=== PATIENT | male | born 1975 | race Caucasian/White ===

== ENCOUNTER → 2020-12-06 08:09 | Outpatient (CLI) | payer BC, SELFPAY ==
[2020-12-06 11:40] LABS: COVID19 -Nasal RAPID Negative (Negative)
== END ==
PROVIDERS: Visit Provider Physician Assistant
DX: Z01.812 Encounter for preprocedural laboratory examination (principal); Z20.822 Contact with and (suspected) exposure to COVID-19
CPT/HCPCS: 87635

== ENCOUNTER 2020-12-07 09:04 | Day surgery (SDC) | payer BC, SELFPAY ==
[2020-12-07] VITALS (18 sets, daily range): BP systolic 86–139; BP diastolic 42–87; PULSE 61–94; RESP 10–20; TEMP 36.2–36.6; O2SAT 93–98; BMI 31.8
[2020-12-07] MEDS: LACTATED RINGERS 1,000 ML 42 ML IV ×3 (09:41→16:00)
--- NOTE | 2020-12-07 10:53 | PM.PREOP ---
Pre-operative Note Interval Note History & Physical reviewed/Exam performed by Physician: Yes Changes to H&P: No
--- NOTE | 2020-12-07 10:54 | PM.HP.1 ---
History of Present Illness History of Present Illness [place] [facility] [place]: 45-YEAR-OLD GENTLEMAN WHO SUSTAINED A FALL MANY MONTHS AGO RESULTING IN A RUPTURE OF HIS DISTAL BICEPS. Patient History Medical History Rupture of left biceps tendon Surgical History Hx of tonsillectomy Family & Social History Social History: household members spouse Tobacco & Substance use: Smoking Status Never smoker alcohol intake current alcohol intake frequency a few times a week Substance Use Type does not use Meds Home Medications and Allergies Home Medications Medication Instructions Recorded Confirmed Type fluorometholone 0.25 % eye 1 drp OPHTHALMIC (EYE) QID 12/04/20 12/07/20 History drops,suspension ([employer]) Allergies Allergy/AdvReac Type Severity Reaction Status Date / Time Penicillins Allergy Verified 12/07/20 09:43 Exam Vital Signs (past 8 hours): - 12/07/20 09:33 Temperature 97.2 F L Pulse Rate 94 H Respiratory Rate 20 Blood Pressure 139/87 Pulse Oximetry 98 Oxygen Delivery Method Room Air Narrative Exam Narrative: PROXIMAL MIGRATION OF THE BICEPS ON THE LEFT. NO PALPABLE DISTAL BICEPS TENDON. FULL RANGE OF MOTION OF THE ELBOW. NO SIGN OF ANY STIFFNESS NO SIGN OF ANY INSTABILITY. FULL RANGE OF MOTION OF THE WRIST AND FINGERS. ULNAR, MEDIAN, AND RADIAL NERVE INTACT TO BOTH MOTOR AND SENSORY FUNCTION. Assessment & Plan Assessment & Plan narrative: 45-YEAR-OLD GENTLEMAN WITH A VERY CHRONIC DISTAL BICEPS RUPTURE. WENT OVER TREATMENT OPTIONS WITH THE PATIENT. PATIENT IS INTERESTED IN AN ATTEMPT AT A REPAIR. HE UNDERSTANDS THAT DUE TO THE CHRONIC NATURE OF THIS MIGHT NOT BE REPAIRABLE. ALSO UNDERSTANDS THE POSSIBLE NEED OF A ALLOGRAFT. Time Spent With Patient Time with patient: less than 15 minutes
--- NOTE | 2020-12-07 11:02 | PM.OP.1 ---
Procedure & Clinicians Same procedure as scheduled: Yes
[2020-12-07] MEDS: CEFAZOLIN 1 GM VIAL 2 GM IV (11:49)
--- NOTE | 2020-12-07 12:05 | SUR.OPER ---
Supine on padded OR bed, head on pillow, right arm secured on padded arm board at <90 degrees abduction, left arm prepped and draped in field on hand table, legs uncrossed, safety belt at thigh.
[2020-12-07] MEDS: BUPIVACAINE 0.25% W/ EPI 30 ML VIAL INJ (12:50)
--- NOTE | 2020-12-07 14:16 | P.OP_ITS ---
Operative Date/Time/Diagnoses Date of procedure: 12/07/20 Time of procedure: 12:00 Pre-op diagnosis: Chronic left distal biceps rupture Post-op diagnosis: same Procedure & Clinicians Procedure: Left distal biceps repair using allograft. Same procedure as scheduled: Yes Indications: Very chronic distal biceps rupture Surgeon: Baron Merchant Windrower Operator: Lawrence Porter Anesthesia Type: General Operative Notes Findings: Chronic distal biceps rupture with retraction up into the upper arm. Significant scarring around the attendant as well as the musculature. Only about 2-3 cm of healthy usable tendon tissue. Quite a bit of pseudo tendon material. No other injuries noted. Closure Type: primary Prosthetic devices, grafts, tissues, transplants, or devices: Achilles allograft as well as a Endo button and tenodesis screw Applied: graft(s) (Achilles allograft) and implant(s) (Endo button and tenodesis screw) Estimated Blood Loss (mL): 20 Tourniquet time (min): 105 Procedure in detail: On date of service, patient was met in the holding area. Operative site was signed and witnessed by the OR staff. The surgery once again discussed with patient and any remaining questions they had were answered fully. Patient was taken back to the operating theater and placed on the operating table in the supine position. Great care taken to ensure that all bony prominences were properly padded. A well-padded tourniquet was placed up along the upper extremity. A timeout was performed to verify patient's name, procedure, and operative site. A diagonal incision was made starting at proximal medial and going to distal radial. This incision was extended proximally up the medial aspect of the upper arm to expose the biceps muscle as well as the chronically ruptured biceps tendon. The lateral antecubital cutaneous nerve was identified and protected. Patient had a chronic rupture that had retracted well beyond the antecubital fossa. The tendon had rolled up into a ball which was quite scarred in. Pick ups and Metzenbaum scissors were used to remove the pseudo tendinous tissue as well as the scar tissue allowing us to get better exposure of the tendon. There was very little usable tendon material so at this point it was decided to augment it with a allograft. Blunt dissection was also used to remove the significant amount of scar tissue around biceps muscle. This helped improve the overall excursion of the tendon at as well as the musculature. An Achilles allograft was used. The fascial tissue was sutured to the end of the tendons and the musculature using FiberWire. The most proximal aspect of the allograft tendon was sutured to the remaining biceps tendon with FiberWire. Next, the remaining allograft tendon was whipstitched using 2. FiberWire into an Endo button. Four strands were used going proximal to distal and then distal to proximal on either side of the tendon. This gave us a wilson fixation of the endo-button as well as the allograft to the remaining biceps tendon and tissue. We then turned our attention to the bicipital tuberosity. Blunt dissection was performed allowing us to get down to the proximal radius. It was quite a bit of pseudo tendinous material around the bicipital tuberosity. This was sharply excised and the bony attachment was debrided using a periosteal elevator. Next, A guidewire was placed through the bicipital tuberosity. The proximal aspect of the cortex was drilled to 8 mm. The wound was then loosely irrigated to remove any bony fragments. The distal cortex was drilled to 4 mm. Sutures were then placed through the lateral holes of the Endo button. These were then placed into the guidewire and passed through a bony tunnel and out the forearm. Those marionette Sutures were used to flip the Endobutton and put it into its appropri ate position as a buttress. This provided a wilson repair of the biceps tendon. Next, a tenodesis screw was placed for additional fixation of the distal biceps tendon. The wound was copiously irrigated again and closed in a layered fashion. Patient was cleaned dried and dressed and he was placed into a splint. Patient was taken to the PACU in stable condition. Postoperatively, neurovascular check was done to the hand. Patient had a 2+ radial pulse and brisk cap refill. Patient had no signs of any posterior interosseous nerve dysfunction. Patient was able to easily fully extend the fingers and the thumb. Post-operative Condition: stable Disposition: PACU Plan for aftercare: Patient will be immobilized in 90? in a posterior splint. This will be converted over to a hinged elbow brace also locked at 90?. We will be protecting his elbow motion for the next 6 weeks.
[2020-12-07] MEDS: HYDROMORPHONE 2 MG INJ IV ×2 (14:39→14:48)
[2020-12-07] MEDS: OXYCODONE IR 5 MG TABLET PO (14:40)
[2020-12-07] MEDS: ACETAMINOPHEN 325 MG TABLET 975 MG PO (14:40)
--- NOTE | 2020-12-07 14:49 | SUR.PHASEI ---
Pt gradually awake, initially no pain, now with pauin 7/10. Medicated with acetaminophen, oxycodone and dilaudid
--- NOTE | 2020-12-07 14:58 | SUR.PHASEI ---
R/A sats dropped ton 88-91% placed on 2/l nasal cannula.
--- NOTE | 2020-12-07 15:19 | SUR.PHASEI ---
Dr. Hitchcock to bedside, examined pt's L hand.
--- NOTE | 2020-12-07 15:44 | SUR.PHASEI ---
1520 Pt ready for trasfer to [facility], 02 weaned off, pt had sudden onset of profuse diaphoresis and c/o being hot. Temp 98.0, pt wiped down, given cool wash cloth to head, lip appeared pale, pt denied increased pain or nausea, pt RR down to 10 when not in conversation sats down to 88-89, 02 2/l placed back on, after 20 mnutes of symptoms not resolving Dr. Almanza in to see pt, no new orders recieved.
--- NOTE | 2020-12-07 16:08 | SUR.PHASEI ---
Still diaphorestic, but much less, ice packs to head, and shoulders. )2 weaned to 1/l.
--- NOTE | 2020-12-07 16:27 | SUR.PHASEI ---
Informed Dr. Martinez of pt's condition during his PACU stay, he assessed pt, ephedrine given by Dr. Martinez BP 86/54, HR 71.
--- NOTE | 2020-12-07 17:03 | SUR.PHASEI ---
BP higher after ephedrine, Dr. Martinez stayed with pt as he sat on side of bed, then to chair, no dizziness, no nausea, no increase in pain, color WNL. Dr. Martinez ok for pt to be discharged. Pt stated This is the best I have felt today Assisted pt to dress, pt left in stable condition.
--- NOTE | 2020-12-07 17:19 | SUR.PHASEII ---
d/c instruction discussed with and pt by ONI Burgess, both voiced an understanding. Pt left in stable condition.
== END 2020-12-07 16:55 | disposition home or self-care (01) ==
PROVIDERS: PCP Family Medicine; Referring Provider Orthopaedic Surgery; Visit Provider Orthopaedic Surgery
PROC: (CPT 24341; principal; 2020-12-07 10:45)
DX: S46.212A Strain of muscle, fascia and tendon of other parts of biceps, left arm, initial encounter (principal); W19.XXXA Unspecified fall, initial encounter
CPT/HCPCS: 24342; 82962; J0690; J1100; J1170; J2250; J2405; J2704; J3010